=== PATIENT | female | born 1955 | race Caucasian/White ===

== ENCOUNTER 2017-01-11 08:08 | Emergency (ER) | payer OTHER ==
[~2017-01-11] VITALS: Ht 157.5 cm; Wt 72.0 kg
[~2017-01-11 08:08] MED LIST: AMLO-147 PO; ASPI-664 PO; HYD25 PO; IBUP-1542 PO; LOSA50TA6 PO; ONDA4TAB8 PO; TAMS-14 PO
[2017-01-11 08:16] VITALS: Ht 157.5 cm; Wt 72.0 kg
[2017-01-11] MEDS ORDERED: traMADol 50 MG TAB PO ONE (09:00)
--- NOTE | 2017-01-11 09:01 | ERD ---
ER Documentation Chief Complaint Date/Time DATE: 01/11/17 TIME: 08:55 Chief Complaint left shoulder pain x 3 weeks HPI 61 yo female comes in with left shoulder pain for 2-3 weeks. She is right-hand dominant, and complains of left anterior shoulder pain that radiates down her anterior humeral region. She states that it is sharp, worse with any movement and better at rest. She denies any trauma, chest pain, shortness breath or paresthesias. ROS All systems reviewed and are negative except as per history of present illness. Medications Home Meds Active Scripts Tramadol HCl (Tramadol HCl) 50 Mg Tablet, 50 MG PO Q4 Y for PAIN, #20 TAB Prov:ANATOLIY VALDERRAMA PA-C 01/11/17 Ibuprofen* (Motrin*) 600 Mg Tab, 600 MG PO Q8 for 10 Days, #30 TAB 0 Refills Prov:ROB CLIFTON PA-C 04/02/16 Ondansetron Hcl* (Zofran*) 4 Mg Tablet, 4 MG PO Q8H Y for NAUSEA AND/OR VOMITING , #30 TAB Prov:POOJA KLEIN 04/22/15 Tamsulosin Hcl* (Flomax*) 0.4 Mg Cap.er.24h, 0.4 MG PO BID, #10 CAP Prov:POOJA KLEIN 04/22/15 Ibuprofen* (Motrin*) 600 Mg Tab, 600 MG PO Q8 for PAIN, #30 Prov:POOJA KLEIN 04/22/15 Reported Medications Hydrochlorothiazide* (Hydrochlorothiazide*) 25 Mg Tab, 25 MG PO DAILY, TAB 04/11/15 Losartan Potassium* (Losartan Potassium*) 50 Mg Tablet, 50 MG PO DAILY, TAB 04/11/15 Aspirin (Low Dose Aspirin) 81 Mg Tablet.dr, 81 MG PO DAILY 04/11/15 Amlodipine Besylate* (Amlodipine Besylate*) 10 Mg Tablet, 10 MG PO DAILY, TAB 04/11/15 Allergies Allergies: Coded Allergies: No Known Drug Allergy (Verified Allergy, Mild, 04/22/15) PMhx/Soc Medical and Surgical Hx: pt denies Surgical Hx History of Surgery: No Anesthesia Reaction: No Hx Neurological Disorder: No Hx Respiratory Disorders: No Hx Cardiac Disorders: Yes (HTN) Hx Psychiatric Problems: No Hx Miscellaneous Medical Probl: Yes (HTN/KIDNEY STONES) Hx Alcohol Use: No Hx Substance Use: No Hx Tobacco Use: No Smoking Status: Never smoker Physical Exam Vitals Vital Signs Date Time Temp Pulse Resp B/P Pulse Ox O2 Delivery O2 Flow Rate FiO2 01/11/17 08:16 98.1 77 18 159/79 99 Physical Exam General: Well-developed, well-nourished. The patient appears in no acute distress. HEENT: Head is normocephalic, atraumatic. No scleral icterus. Neck: Supple. Nontender. Lungs: Clear to auscultation. Normal air movement. Heart: Regular rate and rhythm. S1 and S2 are normal. No murmurs, gallops, or rubs. Abdomen: Nondistended. Musculoskeletal: Patient has full range of motion with left shoulder abduction, adduction, there is tenderness over the anterior humeral head, pain is reproduced with abduction. There is no erythema, no warmth. Patient's radial, ulnar, median nerves are intact bilaterally. Capillary refill less than 2 seconds. There is no swelling. No overlying rash Neurologic: Alert and oriented 3. No focal deficits. Normal speech and gait. Skin: Normal turgor. No rash or lesions. Results 24 hrs Current Medications Medications (Trade) Dose Ordered Sig/Amber Route PRN Reason Start Time Stop Time Status Last Admin Dose Admin Tramadol HCl (Ultram) 50 mg ONCE ONCE PO 01/11/17 09:00 01/11/17 09:01 DC 01/11/17 09:21 Procedures/MDM ED course: Patient was given Tylenol for pain, x-rays of the left shoulder were obtained. PROCEDURE: Left Shoulder Series CLINICAL INDICATION: Left shoulder pain TECHNIQUE: 3 views of the left shoulder are available for review. COMPARISON: None available FINDINGS: There is normal mineralization and alignment of the bones of the left shoulder. No fracture or dislocation is identified. Joint spaces are well maintained. The acromioclavicular joint is grossly unremarkable. The visualized portions of the left chest wall are within normal limits. The soft tissues are unremarkable. IMPRESSION: 1. Unremarkable left shoulder x-ray series. RPTAT: AA .Sage Roque MD, Date Time Electronically viewed and signed by .Sage Roque MD, MD on 2016 09:49 MDM: 61-year-old female presents with left anterior shoulder pain, there is reproducible pain with abduction consistent with rotator cuff tendinitis. X- rays of the left shoulder were obtained, there is no evidence of fracture, subluxation, bony mass, calcific tendinitis. Patient was given tramadol in the emergency department with significant improvement of the pain, she will be given a short course of pain medication to go home at this time. There are no signs of any limb threatening process, suspicion for acute coronary syndrome, any cardiac origin is low. Patient's blood pressure was elevated (>120/80) but appears stable without evidence of hypertension emergency or urgency. The patient was counseled about the risks of hypertension and urged to pursue outpatient monitoring and therapy within a week with their primary care physician. Departure Diagnosis: Primary Impression: Shoulder pain Condition: ANATOLIY Salinas PA-C Jan 11, 2017 09:01
--- NOTE | 2017-01-11 09:49 | RADRPT ---
PROCEDURE: Left Shoulder Series CLINICAL INDICATION: Left shoulder pain TECHNIQUE: 3 views of the left shoulder are available for review. COMPARISON: None available FINDINGS: There is normal mineralization and alignment of the bones of the left shoulder. No fracture or disl ocation is identified. Joint spaces are well maintained. The acromioclavicular joint is grossly un remarkable. The visualized portions of the left chest wall are within normal limits. The soft tissu es are unremarkable. IMPRESSION: 1. Unremarkable left shoulder x-ray series. RPTAT: AA .Sage Roque MD, Date Time Electronically viewed and signed by .Sage Roque MD, on 01/11/2017 09:49 .B/
[2017-01-11] MEDS ORDERED: TRAM50TA2 PO (09:57)
[2017-01-11 10:31] VITALS: BP 134/75; PULSE 75; RESP 18; TEMP 98.4
== END 2017-01-11 10:32 | disposition home or self-care (01) ==
LOC: FTE 08:08
DX: M25.512 Pain in left shoulder (principal); I10 Essential (primary) hypertension; Z79.82 Long term (current) use of aspirin
CPT/HCPCS: 73030; Z7610

== ENCOUNTER 2017-08-17 19:19 | Emergency (ER) | payer OTHER ==
[~2017-08-17] VITALS: Ht 157.5 cm; Wt 71.1 kg
[~2017-08-17 19:19] MED LIST changes: -HYD25 PO; +HYDR25TA6 PO; +TRAM50TA2 PO
[2017-08-17 19:22] VITALS: Ht 157.5 cm; Wt 71.1 kg
[2017-08-17] MEDS ORDERED: ASPIRIN 325 MG TAB PO STA (19:48)
[2017-08-17 20:29] LABS: BASOPHIL # 0.1 10^3/ul (0.0-0.1); BASOPHILS % 0.6 % (0.0-2.0); EOSINOPHILS # 0.3 10^3/ul (0.0-0.5); EOSINOPHILS % 2.3 % (0.0-7.0); HEMATOCRIT 42.6 % (37.0-47.0); HEMOGLOBIN 14.8 g/dl (12.0-16.0); LYMPHOCYTES # 3.2 10^3/ul (0.8-2.9); LYMPHOCYTES % 23.2 % (15.0-51.0); MEAN CORPUSCULAR HEMOGLOBIN 31.4 pg (29.0-33.0); MEAN CORPUSCULAR HGB CONC 34.7 g/dl (32.0-37.0); MEAN CORPUSCULAR VOLUME 90.4 fl (82.0-101.0); MEAN PLATELET VOLUME 9.6 fl (7.4-10.4); MONOCYTE # 0.9 10^3/ul (0.3-0.9); MONOCYTES % 6.2 % (0.0-11.0); NEUTROPHIL # 9.4 10^3/ul (1.6-7.5); NEUTROPHILS % 67.2 % (39.0-77.0); PLATELET COUNT 306 10^3/UL (140-415); RED BLOOD COUNT 4.71 10^6/ul (4.20-5.40); RED CELL DISTRIBUTION WIDTH 12.2 % (11.5-14.5); WHITE BLOOD COUNT 13.9 10^3/ul (4.8-10.8)
[2017-08-17 20:45] LABS: INR 0.98; PARTIAL THROMBOPLASTIN TIME 30.1 Sec (25.0-35.0); PROTIME 13.1 Sec (11.9-14.9)
[2017-08-17 20:49] LABS: ALANINE AMINOTRANSFERASE 31 IU/L (13-69); ALBUMIN 4.2 g/dl (3.3-4.9); ALBUMIN/GLOBULIN RATIO 1.16; ALKALINE PHOSPHATASE 131 IU/L (42-121); ANION GAP 17 (8-16); ASPARTATE AMINO TRANSFERASE 19 IU/L (15-46); BILIRUBIN,INDIRECT 0.3 mg/dl (0-1.1); BILIRUBIN,TOTAL 0.3 mg/dl (0.2-1.3); BLOOD UREA NITROGEN 18 mg/dl (7-20); CALCIUM 9.4 mg/dl (8.4-10.2); CARBON DIOXIDE 27 mmol/L (21-31); CHLORIDE 102 mmol/L (97-110); CREATINE KINASE 52 IU/L (23-200); CREATININE 0.84 mg/dl (0.44-1.00); GLUCOSE 128 mg/dl (70-220); POTASSIUM 3.5 mmol/L (3.5-5.1); SODIUM 142 mmol/L (135-144); TOTAL PROTEIN 7.8 g/dl (6.1-8.1)
[2017-08-17 20:59] LABS: B-TYPE NATRIURETIC PEPTIDE 52 PG/ML (0-125); CK-MB 0.56 ng/ml (0.0-2.4)
[2017-08-17 21:00] LABS: TROPONIN-I < 0.012 ng/ml (0.00-0.12)
[2017-08-17 21:20] LABS: D-DIMER 246.57 ng/ml (<460)
--- NOTE | 2017-08-17 21:27 | RADRPT ---
PROCEDURE: XR Chest. CLINICAL INDICATION: Chest pain TECHNIQUE: Frontal chest x-ray was obtained. COMPARISON: None. FINDINGS: Heart is not enlarged. Mediastinum is not widened. No hilar mass is seen. Lungs are clear of any inf iltrates. There is no effusion or pneumothorax. IMPRESSION: No evidence for active cardiopulmonary disease. .Phani Martinez MD, MD Date Time Electronically viewed and signed by .Phani Martinez MD, MD on 08/17/2017 21:26 .A/
--- NOTE | 2017-08-17 21:42 | ERD ---
ER Documentation Chief Complaint Chief Complaint chest pain/sob x 2 days HPI This is a 62-year-old Arabic-speaking female with past medical history of hypertension that presents to the emergency department complaining of persistent bilateral chest pain for 48 hours. The patient states that the chest pain is pleuritic and therefore is worsened when she takes in a deep breath. She has felt short of breath. She denies any swelling of her lower extremities. She denies any recent travel or prolonged immobilization. She denies any chest pressure that radiates to the neck arm back or jaw she states the pleuritic chest pain is a sharp-like sensation. She denies any associated symptoms of nausea vomiting or diaphoresis. She does not smoke tobacco. She has no family history of coronary artery disease in her first-degree relatives. ROS All systems reviewed and are negative except as per history of present illness. Medications Home Meds Active Scripts Tramadol HCl (Tramadol HCl) 50 Mg Tablet, 50 MG PO Q4 Y for PAIN, #20 TAB Prov:ANATOLIY VALDERRAMA PA-C 01/11/17 Ibuprofen* (Motrin*) 600 Mg Tab, 600 MG PO Q8 for 10 Days, #30 TAB 0 Refills Prov:ROB CLIFTON PA-C 04/02/16 Ondansetron Hcl* (Zofran*) 4 Mg Tablet, 4 MG PO Q8H Y for NAUSEA AND/OR VOMITING , #30 TAB Prov:POOJA KLEIN 04/22/15 Tamsulosin Hcl* (Flomax*) 0.4 Mg Cap.er.24h, 0.4 MG PO BID, #10 CAP Prov:POOJA KLEIN 04/22/15 Ibuprofen* (Motrin*) 600 Mg Tab, 600 MG PO Q8 for PAIN, #30 Prov:POOJA KLEIN 04/22/15 Reported Medications Hydrochlorothiazide* (Hydrochlorothiazide*) 25 Mg Tab, 25 MG PO DAILY, TAB 04/11/15 Losartan Potassium* (Losartan Potassium*) 50 Mg Tablet, 50 MG PO DAILY, TAB 04/11/15 Aspirin (Low Dose Aspirin) 81 Mg Tablet.dr, 81 MG PO DAILY 04/11/15 Amlodipine Besylate* (Amlodipine Besylate*) 10 Mg Tablet, 10 MG PO DAILY, TAB 04/11/15 Allergies Allergies: Coded Allergies: No Known Drug Allergy (Verified Allergy, Mild, 08/17/17) PMhx/Soc Medical and Surgical Hx: pt denies Surgical Hx History of Surgery: No Anesthesia Reaction: No Hx Neurological Disorder: No Hx Respiratory Disorders: No Hx Cardiac Disorders: Yes (HTN) Hx Psychiatric Problems: No Hx Miscellaneous Medical Probl: Yes (HTN/KIDNEY STONES) Hx Alcohol Use: No Hx Substance Use: No Hx Tobacco Use: No Smoking Status: Never smoker Physical Exam Vitals Vital Signs Date Time Temp Pulse Resp B/P Pulse Ox O2 Delivery O2 Flow Rate FiO2 08/17/17 21:15 72 16 107/60 96 Room Air 08/17/17 19:22 98.3 91 20 147/67 95 Physical Exam Constitutional:Well-developed. Well-nourished. HEENT:Normocephalic. Atraumatic.Pupils were equal round reactive to light. Moist mucous membranes.No tonsillar exudates. Neck: No nuchal rigidity. No lymphadenopathy. No posterior cervical spine tenderness or step-offs. Respiratory: Not using accessory muscles of respiration.Lungs were clear to auscultation bilaterally. No rhonchi. No rales. No wheezing. Cardiovascular: Regular rate regular rhythm.No murmurs. No rubs were appreciated.S1, S2 normal. Distal pulses are palpable 2+ bilaterally. Reproducible bilateral chest wall tenderness with no crepitus no ecchymosis no flail chest GI: Abdomen was soft. Nontender. Non Distended. No pulsatile abdominal masses or bruits. No rebound. No guarding. Bowel sounds were present and normal. Muscle skeletal: Full range of motion of both the upper and lower extremities bilaterally.Normal muscle tone.No assymetrical calf tenderness or swelling. Skin: No petechia, no purpura. No lesions on the palms or the soles of the feet. No maculopapular rash. NEURO: Patient was alert, awake, orientated x3.No facial droop. Gait observed and normal with no ataxia.Speech had regular rate and rhythm. No focal neurological deficits. Result Diagram: 08/17/17200408/17/172004 Results 24 hrs Laboratory Tests Test 08/17/17 20:05 White Blood Count 13.910^3/ul Red Blood Count 4.7110^6/ul Hemoglobin 14.8g/dl Hematocrit 42.6% Mean Corpuscular Volume 90.4fl Mean Corpuscular Hemoglobin 31.4pg Mean Corpuscular Hemoglobin Concent 34.7g/dl Red Cell Distribution Width 12.2% Platelet Count 31888^3/UL Mean Platelet Volume 9.6fl Neutrophils % 67.2% Lymphocytes % 23.2% Monocytes % 6.2% Eosinophils % 2.3% Basophils % 0.6% Nucleated Red Blood Cells % 0.0/100WBC Neutrophils # 9.410^3/ul Lymphocytes # 3.210^3/ul Monocytes # 0.910^3/ul Eosinophils # 0.310^3/ul Basophils # 0.110^3/ul Nucleated Red Blood Cells # 0.010^3/ul Prothrombin Time 13.1Sec Prothrombin Time Ratio 1.0 INR International Normalized Ratio 0.98 Activated Partial Thromboplast Time 30.1Sec D-Dimer 246.57ng/ml D-Dimer Comment Sodium Level 142mmol/L Potassium Level 3.5mmol/L Chloride Level 102mmol/L Carbon Dioxide Level 27mmol/L Anion Gap 17 Blood Urea Nitrogen 18mg/dl Creatinine 0.84mg/dl Glucose Level 128mg/dl Calcium Level 9.4mg/dl Total Bilirubin 0.3mg/dl Direct Bilirubin 0.00mg/dl Indirect Bilirubin 0.3mg/dl Aspartate Amino Transf (AST/SGOT) 19IU/L Alanine Aminotransferase (ALT/SGPT) 31IU/L Alkaline Phosphatase 131IU/L Creatine Kinase 52IU/L Creatine Kinase Index 1.1 Creatinine Kinase MB (Mass) 0.56ng/ml Troponin I < 0.012ng/ml B-Type Natriuretic Peptide 52PG/ML Total Protein 7.8g/dl Albumin 4.2g/dl Globulin 3.60g/dl Albumin/Globulin Ratio 1.16 Current Medications Medications (Trade) Dose Ordered Sig/Amber Route PRN Reason Start Time Stop Time Status Last Admin Dose Admin Aspirin (Aspirin) 325 mg ONCE STAT PO 08/17/17 19:48 08/17/17 19:50 DC 08/17/17 20:11 Procedures/MDM The patient presented to the emergency department complaining of chest pain. My clinical evaluation and workup was to distinguish minor causes of chest pain from acute life threatening cardiopulmonary causes such as myocardial infarction , pulmonary embolism, aortic dissection, esophageal rupture, cardiac tamponade, The patient was placed on a surveillance monitor, continuous pulse oximetry and IV access established by nursing staff. The patient received aspirin with no improvement of her symptoms. Therefore the patient was given IV Toradol with complete resolution of her symptoms. 12 Lead EKG tracing ordered and reviewed by myself showed: Normal sinus rhythm of 75 bpm and no arrhythmia. PA interval normal. QRS duration normal. No ST segment elevation No ST segment depression. No changes consistent with acute ischemia. The patients chest pain was reproduced by palpation and horizontal flexion of the arms. It was my clinical impression that the pain was a result of inflammation of the skin and subcutaneous structures of the chest wall versus myocardial ischemia. I felt the patient had low-risk chest pain and could therefore be safely discharged with close follow-up. Even that the patient also was complaining of shortness of breath I did obtain a d-dimer given that she was a low pretest probability according to the well's criteria. The d-dimer was normal my clinical suspicion was low for pulmonary embolism. The patient felt comfortable being discharged home and will follow up with her PCP. The patient was discharged home in fair condition. They were instructed to return to the emergency department at any time if there was any worsening of their condition. The patient stated they would follow up with their PCP in the next 24-48 hours to initiate a suitable medication regimen under the care of their PCP as well as to allow their PCP to monitor any drug reactions. The patient was discharged home with prescriptions after they gave informed consent to the new medication. They were also fully informed by myself on the adverse effects and adverse drug interactions in order to provide adequate safeguards to prevent possible adverse reactions to medications. Departure Diagnosis: Primary Impression: Pleurisy Condition: Fair LINDY EWING Aug 17, 2017 21:42
[2017-08-17] MEDS ORDERED: NAPR-260 PO (21:44)
[2017-08-17 22:09] VITALS: BP 118/65; PULSE 75; RESP 18; TEMP 98.7
== END 2017-08-17 22:12 | disposition home or self-care (01) ==
LOC: E/R 19:19
DX: R09.1 Pleurisy (principal); I10 Essential (primary) hypertension; Z79.82 Long term (current) use of aspirin
CPT/HCPCS: 36415; 71010; 80053; 82550; 82553; 83880; 84484; 85025; 85378; 85610; 85730; 93005; Z7502; Z7610

== ENCOUNTER 2017-09-13 20:21 | Emergency (ER) | END 2017-09-14 04:30 | disposition home or self-care (01) ==

== ENCOUNTER 2018-09-06 08:25 | Emergency (ER) | END 2018-09-06 10:34 | disposition home or self-care (01) ==

== ENCOUNTER 2019-01-15 03:24 | Emergency (ER) | payer OTHER ==
[~2019-01-15] VITALS: Wt 71.1 kg
[~2019-01-15 03:24] MED LIST changes: +ACET500C5 PO; -ASPI-664 PO; +ASPI81TA52 PO; +HYDR-4011 PO; +IBUP800T48 PO; +LOSA50TA14 PO; -LOSA50TA6 PO; +NAPR-985 PO
[2019-01-15] MEDS ORDERED: LORAZEPAM 2 MG INJ IV ONE (04:00)
[2019-01-15] MEDS ORDERED: MECLIZINE 12.5 MG TAB PO ONE (04:00)
--- NOTE | 2019-01-15 04:49 | ERD ---
ER Documentation Chief Complaint Chief Complaint C/O DIZZINESS, NAUSEA X'S 2 HOURS; HYPERTENSIVE HPI During the patient's encounter translation services were utilized Language: Tanzanian Source: Family and video 63-year-old female history of hypertension is noncompliant with her blood pressure medications over the past 48 hours. She states that it makes her pee too much. The patient presents with multiple complaints. Her main complaint is dizziness. She states that she woke from sleep with a room spinning sensation. When she got up the room was spinning more significantly and she had an episode of nonbloody nonbilious emesis. She denies any significant headache but took her blood pressure and the blood pressure was in the 200s. She denies any active chest pain but thinks may have had some fluttering in her chest, the patient denies any active chest discomfort or pressure or exertional symptoms. Patient denies any fevers or chills, falls or injuries. ROS All systems reviewed and are negative except as per history of present illness. Medications Home Meds Active Scripts Meclizine Hcl* (Meclizine Hcl*) 25 Mg Tablet, 25 MG PO Q8H PRN for DIZZINESS, #20 TAB Prov:MACARIO BLOUNT MD 01/15/19 Ibuprofen* (Motrin*) 800 Mg Tab, 800 MG PO Q6H PRN for PAIN AND OR ELEVATED TEMP, #30 TAB Prov:MACARIO BLOUNT MD 09/06/18 Acetaminophen* (Tylophen*) 500 Mg Capsule, 1 CAP PO Q6H PRN for PAIN AND OR ELEVATED TEMP, #20 CAP Prov:CHELY,ASHWIN 09/14/17 Hydrocodone/Acetaminophen ([place] 5-325 Tablet) 1 Each Tablet, 1 TAB PO Q6H PRN for PAIN, #7 TAB Prov:CHELY,ASHWIN 09/14/17 Naproxen* (Naprosyn*) 500 Mg Tablet, 500 MG PO BID PRN for PAIN AND/OR INFLAMMATION, #30 TAB Prov:LINDY EWING MD 08/17/17 Tramadol HCl (Tramadol HCl) 50 Mg Tablet, 50 MG PO Q4 PRN for PAIN, #20 TAB Prov:ANATOLIY VALDERRAMA PA-C 01/11/17 Ibuprofen* (Motrin*) 600 Mg Tab, 600 MG PO Q8 for 10 Days, #30 TAB 0 Refills Prov:ROB CLIFTON PA-C 04/02/16 Ondansetron Hcl* (Zofran*) 4 Mg Tablet, 4 MG PO Q8H PRN for NAUSEA AND/OR VOMITING, #30 TAB Prov:ERNIEPOOJA 04/22/15 Tamsulosin Hcl* (Flomax*) 0.4 Mg Cap.er.24h, 0.4 MG PO BID, #10 CAP Prov:POOJA KLEIN 04/22/15 Ibuprofen* (Motrin*) 600 Mg Tab, 600 MG PO Q8 for PAIN, #30 Prov:POOJA KLEIN 04/22/15 Reported Medications Hydrochlorothiazide* (Hydrochlorothiazide*) 25 Mg Tab, 25 MG PO DAILY, TAB 04/11/15 Losartan Potassium* (Losartan Potassium*) 50 Mg Tablet, 50 MG PO DAILY, TAB 04/11/15 Aspirin (Low Dose Aspirin) 81 Mg Tablet.dr, 81 MG PO DAILY 04/11/15 Amlodipine Besylate* (Amlodipine Besylate*) 10 Mg Tablet, 10 MG PO DAILY, TAB 04/11/15 Allergies Allergies: Coded Allergies: No Known Drug Allergy (Verified Allergy, Mild, 09/14/17) PMhx/Soc Medical and Surgical Hx: pt denies Surgical Hx History of Surgery: No Anesthesia Reaction: No Hx Neurological Disorder: No Hx Respiratory Disorders: No Hx Cardiac Disorders: Yes (HTN) Hx Psychiatric Problems: No Hx Miscellaneous Medical Probl: Yes (PRIOR KIDNEY STONES) Hx Alcohol Use: No Hx Substance Use: No Hx Tobacco Use: No Smoking Status: Never smoker FmHx Family History: No diabetes Physical Exam Vitals Vital Signs Date Temp Pulse Resp B/P (MAP) Pulse Ox O2 O2 Flow FiO2 Time Delivery Rate 01/15/19 75 18 143/69 100 Room Air 04:53 (93) 01/15/19 97.3 75 18 200/102 96 03:28 (134) Physical Exam General: Well developed, well nourished, no acute distress Head: Normocephalic, atraumatic. Eyes: Pupils equally reactive, EOM intact, scant reproducible horizontal nysta gmus ENT: Moist mucous membranes Neck: Supple, no lymphadenopathy Respiratory: Lungs clear bilaterally, no distress Cardiovascular: RRR, no murmurs, rubs, or gallops Abdominal: Soft, non-tender, non-distended, no peritoneal signs : Deferred MSK: No edema, no unilateral swelling, 5/5 strength Neurologic: Alert and oriented, moving all extremities, normal speech, no focal weakness, no cerebellar signs, steady gait, no ataxia, normal rapid alternating movements Skin: No rash Psych: Normal mood Result Diagram: 01/15/19 0406 01/15/19 0406 Results 24 hrs Laboratory Tests Test 01/15/19 04:06 White Blood Count 12.1 10^3/ul Red Blood Count 4.75 10^6/ul Hemoglobin 14.6 g/dl Hematocrit 43.5 % Mean Corpuscular Volume 91.6 fl Mean Corpuscular Hemoglobin 30.7 pg Mean Corpuscular Hemoglobin Concent 33.6 g/dl Red Cell Distribution Width 11.8 % Platelet Count 280 10^3/UL Mean Platelet Volume 9.4 fl Immature Granulocytes % 0.700 % Neutrophils % 79.4 % Lymphocytes % 13.9 % Monocytes % 4.0 % Eosinophils % 1.6 % Basophils % 0.4 % Nucleated Red Blood Cells % 0.0 /100WBC Immature Granulocytes # 0.080 10^3/ul Neutrophils # 9.6 10^3/ul Lymphocytes # 1.7 10^3/ul Monocytes # 0.5 10^3/ul Eosinophils # 0.2 10^3/ul Basophils # 0.1 10^3/ul Nucleated Red Blood Cells # 0.0 10^3/ul Sodium Level 144 mmol/L Potassium Level Pending Chloride Level 107 mmol/L Carbon Dioxide Level 26 mmol/L Anion Gap 11 Blood Urea Nitrogen 15 mg/dl Creatinine 0.57 mg/dl Est Glomerular Filtrat Rate mL/min > 60 mL/min Glucose Level 147 mg/dl Calcium Level 9.6 mg/dl Troponin I < 0.012 ng/ml Current Medications Medications Dose Sig/Amber Start Time Status Last (Trade) Ordered Route PRN Stop Time Admin Dose Reason Admin Meclizine 25 mg ONCE ONCE 01/15/19 DC 01/15/19 HCl PO 04:00 01/15/19 04:12 (Antivert) 04:01 Lorazepam 0.5 mg ONCE ONCE 01/15/19 DC 01/15/19 (Ativan) IV 04:00 01/15/19 04:12 04:01 Procedures/MDM EKG, MONITORS, & DIAGNOSTIC IMAGING: EKG: I reviewed and interpreted a 12-lead EKG. Rhythm: Normal sinus rhythm ST Changes: No contiguous ST segment elevations T waves: No contiguous T wave inversions Impression: No evidence of acute cardiac ischemia CT brain: No acute process per radiologist LAB INTERPRETATION: I reviewed the laboratory testing and it shows no evidence of acute process MEDICAL DECISION MAKING: The patient presents with elevated blood pressure. Vertigo type symptoms. The patient's clinical exam and history and presentation are likely consistent with positional vertigo. The patient has reproducible horizontal nystagmus without vertical or rotatory nystagmus. She has a nonfocal neurologic exam. The patient flirts with a describing chest pain but denies any active chest pressure or discomfort. Because the patient cannot clearly articulate this I do believe EKG and troponin would be appropriate in the setting of elevated blood pressure but I am not concerned that this is consistent with acute coronary syndrome. Patient will benefit from CT of the brain given elevated blood pressure. Blood pressure in triage was in the 200s but now on my exam is 180s. Continue to monitor response. If the patient requires reduction consider p.o. Cardene. Patient was advised of importance of compliance with her blood pressure regimen. ER COURSE: * Patient given Ativan and meclizine * Patient symptoms are dramatically improved. Blood pressures dropped in the 140s, she has not required antihypertensive medications. * No evidence of endorgan dysfunction. The patient can be safely discharged with primary care follow-up. CONSULTATION: None DISPOSITION PLAN: The patient does not have an identifiable emergent medical condition that warrants inpatient hospitalization at this time. The patient is deemed safe for discharge with outpatient follow-up. We discussed follow up with the patient's primary care doctor within 24 to 48 hours as needed. We also discussed return to the emergency room for worsening symptoms or worsening condition. Outpatient referral: None required Discharge Medications: Meclizine Departure Diagnosis: Primary Impression: Hypertensive urgency Additional Impression: Peripheral vertigo Laterality: unspecified laterality Qualified Codes: H81.399 - Other peripheral vertigo, unspecified ear Condition: Stable MACARIO BLOUNT MD January 15, 2019 04:49
[2019-01-15] MEDS ORDERED: MECL-77 PO (05:06)
[2019-01-15 05:24] VITALS: BP 134/74; PULSE 74; RESP 18
== END 2019-01-15 05:27 | disposition home or self-care (01) ==
LOC: E/R 03:24
DX: I16.0 Hypertensive urgency (principal); I10 Essential (primary) hypertension; H81.399 Other peripheral vertigo, unspecified ear; Z79.82 Long term (current) use of aspirin
CPT/HCPCS: 36415; 70450; 80048; 84484; 85025; 93005; 96374; 99285; J2060